=== PATIENT | male | born 1945 | race Caucasian/White ===

== ENCOUNTER 2020-12-06 10:19 | Outpatient (REF) | payer MEDICARE, SELFPAY ==
--- NOTE | ~2020-12-06 | XR_ITS ---
EXAMINATION: XR ELBOW, LEFT CLINICAL INFORMATION: Pain COMPARISON: None TECHNIQUE: AP, lateral, and oblique views of the left elbow. FINDINGS: Bone alignment is normal. No fracture or dislocation is seen. The joint spaces are normal. There is no joint effusion. There is soft tissue calcification or ossification of the triceps tendon insertion to the olecranon. There is overlying soft tissue swelling. XR/XR elbow LT min 3V IMPRESSION: Soft tissue calcification or ossification of the triceps tendon insertion to the olecranon and overlying soft tissue swelling.
== END 2020-12-06 10:20 | disposition home or self-care (01) ==
LOC: HO.HOSX 10:19
PROVIDERS: Visit Provider Orthopaedic Surgery
DX: M25.522 Pain in left elbow (principal); M70.22 Olecranon bursitis, left elbow
CPT/HCPCS: 73080; 99202

== ENCOUNTER 2021-02-20 07:58 | Outpatient (REF) | payer MEDICARE, SELFPAY ==
--- NOTE | ~2021-02-20 | XR_ITS ---
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 No fracture or dislocation is seen. There is a small joint effusion. Standing AP view of the left knee is unremarkable. XR/XR knee standing BI IMPRESSION: Satisfactory appearance of right knee replacement.
--- NOTE | ~2021-02-20 | XR_ITS ---
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 No fracture or dislocation is seen. There is a small joint effusion. Standing AP view of the left knee is unremarkable. XR/XR knee RT 2V IMPRESSION: Satisfactory appearance of right knee replacement.
== END 2021-02-20 07:59 | disposition home or self-care (01) ==
LOC: HO.HOSX 07:58
PROVIDERS: Visit Provider Orthopaedic Surgery
DX: M25.561 Pain in right knee (principal); M25.562 Pain in left knee; Z96.651 Presence of right artificial knee joint
CPT/HCPCS: 73560; 73565; 99212

== ENCOUNTER 2025-04-08 08:14 | Outpatient (REF) | payer MEDICARE, SELFPAY ==
--- NOTE | ~2025-04-08 | XR_ITS ---
EXAMINATION: XR SHOULDER 2 OR MORE VIEWS RIGHT HISTORY: M25.511 - Pain in right shoulder COMPARISON: There are no prior studies available for comparison. FINDINGS: Three views of the right shoulder are submitted. Osseous mineralization is normal. There is no fracture or dislocation. The glenohumeral and acromioclavicular joint spaces are preserved. The soft tissues are unremarkable. XR/XR shoulder RT min 2V IMPRESSION: Unremarkable examination of the right shoulder. Electronically signed by: Aubrey Marina MD 04/08/2025 08:35 AM EDT
--- OUTSIDE RECORDS SUMMARY | 2025-04-08 08:31 | XMS_ITS | Patient Health Record ---
Author Organization Katie Gonzales MD Address [address] [place] [id number] Care Team Providers Care Shactor Helper Name Role Phone Katie Gonzales Primary Care Provider Allergies Allergen (clinical drug ingredient) Drug/Non Drug Allergy documented on EMR Reaction Allergy Type Onset Date Status lisinopril Lisinopril Cough Drug Allergy Activ e semaglutide Ozempic Malaise Drug Allergy 09/23/2023 Acti ve Results Component Value Reference Range Notes HCV Antibody-[id number] Reviewed date:12/29/2024 06:12:28 PM Interpretation: Performing Lab:[facility], [address] [place] [address], Phone - [phone], Director - [place] Notes/Report: Test(s) 573938-Yhpebkroajvbz Acid, Serum was developed and its performance characteristics determined by [facility]. It has not been cleared or approved by the Food and Drug Administration. Hep C Virus Ab Non Reactive Non Reactive HCV antibody alone does not differentiate between previously resolved infection and active infection. Equivocal and Reactive HCV antibody results should be followed up with an HCV RNA test to support the diagnosis of active HCV infection. Methylmalonic Acid, Serum-70 6961 Reviewed date:12/29/2024 06:12:28 PM Interpretation: Performing Lab:[facility], [address] [facility], [place], Phone - [phone], Director - [place] Notes/Report: Test(s) 690815-Czbabwhxpwdso Acid, Serum was developed and its performance characteristics determined by [facility]. It has not been cleared or approved by the Food and Drug Administration. Methylmalonic Acid, Serum 327 0-378 nmol/L LP+Non-HDL Cholesterol-96134 5 Reviewed date:12/29/2024 06:12:28 PM Interpretation: Performing Lab:[facility], [address] [facility], Phone - [phone], Director - [facility] Notes/Report: Test(s) 633550-Fgldeuanvdmkv Acid, Serum was developed and its performance characteristics determined by [facility]. It has not been cleared or approved by the Food and Drug Administration. Cholesterol, Total 117 100-199 mg/dL Triglycerides 73 0-149 mg/dL HDL Cholesterol 50 >39 mg/dL VLDL Cholesterol [place] 15 5-40 mg/dL LDL Chol Calc (NIH) 52 0-99 mg/dL Non-HDL Cholesterol 67 0-129 mg/dL Comp. Metabolic Panel (14)-3 45417 Reviewed date:12/29/2024 06:12:28 PM Interpretation: Performing Lab:[facility] [place], [address] [facility], Phone - [phone], Director - [facility] Notes/Report: Test(s) 082303-Bctqeuxmxvqll Acid, Serum was developed and its performance characteristics determined by [facility] [employer]. It has not been cleared or approved by the Food and Drug Administration. Glucose 107 70-99 mg/dL BUN 18 8-27 mg/dL Creatinine 0.90 0.76-1.27 mg/dL eGFR 87 >59 mL/min/1.73 BUN/Creatinine Ratio 20 10-24 Sodium 142 134-144 mmol/L Potassium 4.9 3.5-5.2 mmol/L Chloride 102 96-106 mmol/L Carbon Dioxide, Total 17 20-29 mmol/L Calcium 9.3 8.6-10.2 mg/dL Protein, Total 6.6 6.0-8.5 g/dL Albumin 4.3 3.8-4.8 g/dL Globulin, Total 2.3 1.5-4.5 g/dL Bilirubin, Total 0.3 0.0-1.2 mg/dL Alkaline Phosphatase 134 44-121 IU/L AST (SGOT) 24 0-40 IU/L ALT (SGPT) 16 0-44 IU/L Albumin/Creatinine Ratio,Uri ne-016321 Reviewed date:12/29/2024 06:12:28 PM Interpretation: Performing Lab:[facility] [place], [address] [facility], Phone - [phone], Director - [facility] Notes/Report: Test(s) 127224-Vugkgfdbndewg Acid, Serum was developed and its performance characteristics determined by [facility]. It has not been cleared or approved by the Food and Drug Administration. Creatinine, Urine 28.8 Not Estab. mg/dL Albumin, Urine <3.0 Not Estab. ug/mL Alb/Creat Ratio <10 0-29 mg/g creat Normal: 0 - 29 Moderately increased: 30 - 300 Severely increased: >300 Vitamin D, 62-Dbvhvgo-192616 Reviewed date:12/29/2024 06:12:27 PM Interpretation: Performing Lab:[facility] [place], [address] [place] [address], Phone - [phone], [facility] - [facility] Notes/Report: Test(s) 043877-Kczieciyxjcpg Acid, Serum was developed and its performance characteristics determined by [facility]. It has not been cleared or approved by the Food and Drug Administration. Vitamin D, 25-Hydroxy 66.4 30.0-100.0 ng/mL Vitamin D deficiency has been defined by the [place] [employer] and an Endocrine Society practice guideline as a level of serum 25-OH vitamin D less than 20 ng/mL (1,2). The Endocrine Society went on to further define vitamin D insufficiency as a level between 21 and 29 ng/mL (2). 1. IOM ([place] of [employer]). 2010. Dietary reference intakes for calcium and D. [place]: The National Academies Press. 2. Antonieta MF, Kwame NC, Libertad LUNA, et al. Evaluation, treatment, and prevention of vitamin D deficiency: an Endocrine Society clinical practice guideline. JCEM. 2010; 96(7):1911-30. Prostate-Specific Ag-218631 Reviewed date:12/29/2024 06:12:27 PM Interpretation: Performing Lab:[facility] [place], [address] [facility], [place], Phone - [phone], Director - [facility] Notes/Report: Test(s) 276222-Sxabdigcgxvol Acid, Serum was developed and its performance characteristics determined by [facility]. It has not been cleared or approved by the Food and Drug Administration. Prostate Specific Ag 5.1 0.0-4.0 ng/mL Cuco ECLIA methodology. . According to the [place] [employer], Serum PSA should decrease and remain at undetectable levels after radical prostatectomy. The AUA defines biochemical recurrence as an initial PSA value 0.2 ng/mL or greater followed by a subsequent confirmatory PSA value 0.2 ng/mL or greater. Values obtained with different assay methods or kits cannot be used interchangeably. Results cannot be interpreted as absolute evidence of the presence or absence of malignant disease. Reticulocyte Count-[id number] Reviewed date:12/29/2024 06:12:27 PM Interpretation: Performing Lab:[facility] [place], [address] [place] [address], Phone - [phone], Director - [facility] Notes/Report: Test(s) 218611-Pihutpzgjgydu Acid, Serum was developed and its performance characteristics determined by [facility]. It has not been cleared or approved by the Food and Drug Administration. Reticulocyte Count 1.5 0.6-2.6 % CBC With Differential/Platel et-[id number] Reviewed date:12/29/2024 06:12:27 PM Interpretation: Performing Lab:[facility] [place], [address] [place] [address], Phone - [phone], Director - [facility] Notes/Report: Test(s) 872518-Dbhjegswhxuam Acid, Serum was developed and its performance characteristics determined by [facility]. It has not been cleared or approved by the Food and Drug Administration. WBC 5.3 3.4-10.8 x10E3/uL RBC 4.49 4.14-5.80 x10E6/uL Hemoglobin 14.8 13.0-17.7 g/dL Hematocrit 44.0 37.5-51.0 % MCV 98 79-97 fL MCH 33.0 26.6-33.0 pg MCHC 33.6 31.5-35.7 g/dL RDW 13.4 11.6-15.4 % Platelets 262 150-450 x10E3/uL Neutrophils 69 Not Estab. % Lymphs 20 Not Estab. % Monocytes 8 Not Estab. % Eos 2 Not Estab. % Basos 1 Not Estab. % Neutrophils (Absolute) 3.7 1.4-7.0 x10E3/uL Lymphs (Absolute) 1.0 0.7-3.1 x10E3/uL Monocytes(Absolute) 0.4 0.1-0.9 x10E3/uL Eos (Absolute) 0.1 0.0-0.4 x10E3/uL Baso (Absolute) 0.1 0.0-0.2 x10E3/uL Immature Granulocytes 0 Not Estab. % Immature Grans (Abs) 0.0 0.0-0.1 x10E3/uL TSH-[id number] Reviewed date:12/29/2024 06:12:27 PM Interpretation: Performing Lab:[facility] [place], [address] [place] [address], Phone - [phone], Director - [facility] Notes/Report: Test(s) 815932-Sjrbyknquxqch Acid, Serum was developed and its performance characteristics determined by [facility]. It has not been cleared or approved by the Food and Drug Administration. TSH 1.180 0.450-4.500 uIU/mL Urinalysis, Complete-124041 Reviewed date:12/29/2024 06:12:27 PM Interpretation: Performing Lab:[facility] [place], [address] [place] [address], Phone - [phone], Director - [facility] Notes/Report: Test(s) 952764-Vhdyilhvyboez Acid, Serum was developed and its performance characteristics determined by [facility]. It has not been cleared or approved by the Food and Drug Administration. Test(s) 763684-Ieaukrxccdkfx Acid, Serum was developed and its performance characteristics determined by [facility]. It has not been cleared or approved by the Food and Drug Administration. Specific [place] 1.018 1.005-1.030 pH 6.0 5.0-7.5 Urine-Color Yellow Yellow Appearance Clear Clear WBC Esterase Negative Negative Protein Negative Negative/Trace Glucose 3+ Negative Ketones Negative Negative Occult Blood Negative Negative Bilirubin Negative Negative Urobilinogen,Semi-Qn 0.2 0.2-1.0 mg/dL Nitrite, Urine Negative Negative Microscopic Examination Micr oscopic follows if indicated. Microscopic Examination See below: Micr oscopic was indicated and was performed. WBC None seen 0 - 5 /hpf RBC None seen 0 - 2 /hpf Epithelial Cells (non renal) None seen 0 - 10 /hpf Casts None seen None seen /lpf Bacteria None seen None seen/Few Thyroxine (T4) Free, Direct- [id number] Reviewed date:12/29/2024 06:12:27 PM Interpretation: Performing Lab:[facility], Phone - [phone], Director [facility] Notes/Report: Test(s) 613257-Xmshojgeimizf Acid, Serum was developed and its performance characteristics determined by [facility]. It has not been cleared or approved by the Food and Drug Administration. T4,Free(Direct) 1.45 0.82-1.77 ng/dL Vitamin [id number] Reviewed date:12/29/2024 06:12:27 PM Interpretation: Performing Lab:[facility] [place], [address] [place] [address], Phone - [phone], [facility] Notes/Report: Test(s) 177315-Ssctttovfqrgc Acid, Serum was developed and its performance characteristics determined by [facility]. It has not been cleared or approved by the Food and Drug Administration. Vitamin B12 720 718-7157 pg/mL Hemoglobin A1C Reviewed date:12/09/2024 04:31:43 PM Interpretation: Performing Lab: Notes/Report: [facility] [place] [facility] [place]), Katie Gonzales MD PC Lot: [id number] Exercise Stress Nuclear Test (Not yet reviewed by provider) Interpretation: Performing Lab: Notes/Report: Hemoglobin A1C Reviewed date:10/11/2024 06:05:53 PM Interpretation: Performing Lab: Notes/Report: [facility] [place] 2 ([facility] [place] 2), Katie Gonzales MD PC Lot: [id number] Vitamin [id number] Reviewed date:10/11/2024 06:05:52 PM Interpretation: Performing Lab:[facility] [place], Phone - [phone], [facility] Notes/Report: Vitamin B12 >2000 232-1245 pg/mL Thyroxine (T4) Free, Direct- [id number] Reviewed date:10/11/2024 06:05:52 PM Interpretation: Performing [facility] [address] [place] [address], Phone - [phone], [facility] Notes/Report: T4,Free(Direct) 1.30 0.82-1.77 ng/dL Urinalysis, Complete-[id number] Reviewed date:10/11/2024 06:05:52 PM Interpretation: Performing Lab:[facility] [place], [address] [place] [address], Phone - [phone], Director - [facility] Notes/Report: Specific [place] 1.028 1.005-1.030 pH 5.5 5.0-7.5 Urine-Color Yellow Yellow Appearance Clear Clear WBC Esterase Negative Negative Protein Trace Negative/Trace Glucose 3+ Negative Ketones Negative Negative Occult Blood Negative Negative Bilirubin Negative Negative Urobilinogen,Semi-Qn 0.2 0.2-1.0 mg/dL Nitrite, Urine Negative Negative Microscopic Examination Micr oscopic follows if indicated. Microscopic Examination See below: Micr oscopic was indicated and was performed. WBC None seen 0 - 5 /hpf RBC None seen 0 - 2 /hpf Epithelial Cells (non renal) None seen 0 - 10 /hpf Casts None seen None seen /lpf Bacteria None seen None seen/Few TSH-[id number] Reviewed date:10/11/2024 06:05:52 PM Interpretation: Performing Lab:[facility], [address] [place] [address], Phone - [phone], Director - dry Notes/Report: TSH 2.060 0.450-4.500 uIU/mL CBC With Differential/Platel et-[id number] Reviewed date:10/11/2024 06:05:52 PM Interpretation: Performing Lab:[facility], [address] [place] [address], Phone - [phone], Director - [facility] Notes/Report: WBC 7.0 3.4-10.8 x10E3/uL RBC 4.56 4.14-5.80 x10E6/uL Hemoglobin 15.6 13.0-17.7 g/dL Hematocrit 45.4 37.5-51.0 % MCV 100 79-97 fL MCH 34.2 26.6-33.0 pg MCHC 34.4 31.5-35.7 g/dL RDW 12.3 11.6-15.4 % Platelets 271 150-450 x10E3/uL Neutrophils 76 Not Estab. % Lymphs 15 Not Estab. % Monocytes 6 Not Estab. % Eos 2 Not Estab. % Basos 1 Not Estab. % Neutrophils (Absolute) 5.3 1.4-7.0 x10E3/uL Lymphs (Absolute) 1.0 0.7-3.1 x10E3/uL Monocytes(Absolute) 0.4 0.1-0.9 x10E3/uL Eos (Absolute) 0.2 0.0-0.4 x10E3/uL Baso (Absolute) 0.0 0.0-0.2 x10E3/uL Immature Granulocytes 0 Not Estab. % Immature Grans (Abs) 0.0 0.0-0.1 x10E3/uL Reticulocyte Count-[id number] Reviewed date:10/11/2024 06:05:52 PM Interpretation: Performing Lab:[facility] [place], [address] [place] [address], Phone - [phone], Director - [place] Notes/Report: Reticulocyte Count 0.8 0.6-2.6 % Vitamin D, 74-Gwhczie-[id number] Reviewed date:10/11/2024 06:05:52 PM Interpretation: Performing Lab:[facility] [place], [address] [place] [address], Phone - [phone], Director - [place] Notes/Report: Vitamin D, 25-Hydroxy 87.0 30.0-100.0 ng/mL Vitamin D deficiency has been defined by the [place] [employer] and an Endocrine Society practice guideline as a level of serum 25-OH vitamin D less than 20 ng/mL (1,2). The Endocrine Society went on to further define vitamin D insufficiency as a level between 21 and 29 ng/mL (2). 1. IOM ([place] [employer]). 2010. Dietary reference intakes for calcium and D. [place]: The National Academies Press. 2. Antonieta MF, Kwame [place], Libertad LUNA, et al. Evaluation, treatment, and prevention of vitamin D deficiency: an Endocrine Society clinical practice guideline. JCEM. 2010; 96(7):1911-30. Albumin/Creatinine Ratio,Uri ne-231214 Reviewed date:10/11/2024 06:05:53 PM Interpretation: Performing Lab:[facility] [place], [address] [place] [address], Phone - [phone], Director - [place] Notes/Report: Creatinine, Urine 77.6 Not Estab. mg/dL Albumin, Urine <3.0 Not Estab. ug/mL Alb/Creat Ratio <4 0-29 mg/g creat Normal: 0 - 29 Moderately increased: 30 - 300 Severely increased: >300 Comp. Metabolic Panel (14)-3 98611 Reviewed date:10/11/2024 06:05:53 PM Interpretation: Performing Lab:[facility] [place], [address] [place] [address], Phone - [phone], Director - [place] Notes/Report: Glucose 99 70-99 mg/dL BUN 15 8-27 mg/dL Creatinine 0.90 0.76-1.27 mg/dL eGFR 87 >59 mL/min/1.73 BUN/Creatinine Ratio 17 10-24 Sodium 140 134-144 mmol/L Potassium 4.8 3.5-5.2 mmol/L Chloride 100 96-106 mmol/L Carbon Dioxide, Total 25 20-29 mmol/L Calcium 9.6 8.6-10.2 mg/dL Protein, Total 6.8 6.0-8.5 g/dL Albumin 4.3 3.8-4.8 g/dL Globulin, Total 2.5 1.5-4.5 g/dL Bilirubin, Total 1.1 0.0-1.2 mg/dL Alkaline Phosphatase 121 44-121 IU/L AST (SGOT) 19 0-40 IU/L ALT (SGPT) 14 0-44 IU/L LP+Non-HDL Cholesterol-71998 5 Reviewed date:10/11/2024 06:05:53 PM Interpretation: Performing Lab:[facility], [address] [place] [address], Phone - [phone], Director - [place] Notes/Report: Cholesterol, Total 75 100-199 mg/dL Triglycerides 95 0-149 mg/dL HDL Cholesterol 31 >39 mg/dL VLDL Cholesterol Colton 19 5-40 mg/dL LDL Chol Calc (NIH) 25 0-99 mg/dL Non-HDL Cholesterol 44 0-129 mg/dL Hemoglobin A1C Reviewed date:06/09/2024 05:59:48 PM Interpretation: Performing Lab: Notes/Report: [facility] [place]), Katie Gonzales MD PC Lot: [id number] Thyroxine (T4) Free, Direct- [id number] Reviewed date:06/13/2024 06:35:25 AM Interpretation: Performing Lab:[facility] [place], [address] [place] [address], Phone - [phone], Director - [place] Notes/Report: T4,Free(Direct) 1.52 0.82-1.77 ng/dL TSH-[id number] Reviewed date:06/13/2024 06:35:25 AM Interpretation: Performing Lab:[facility] [place], [address] [facility], Phone - [phone], Director - [facility] Notes/Report: TSH 1.580 0.450-4.500 uIU/mL Comp. Metabolic Panel (14)-3 90105 Reviewed date:06/13/2024 06:35:26 AM Interpretation: Performing Lab:[facility] [place], [address] [facility], Phone - [phone], Director - [facility] Notes/Report: Glucose 86 70-99 mg/dL BUN 13 8-27 mg/dL Creatinine 0.87 0.76-1.27 mg/dL eGFR 88 >59 mL/min/1.73 BUN/Creatinine Ratio 15 10-24 Sodium 143 134-144 mmol/L Potassium 5.3 3.5-5.2 mmol/L Chloride 101 96-106 mmol/L Carbon Dioxide, Total 24 20-29 mmol/L Calcium 9.4 8.6-10.2 mg/dL Protein, Total 6.4 6.0-8.5 g/dL Albumin 4.1 3.8-4.8 g/dL Globulin, Total 2.3 1.5-4.5 g/dL Bilirubin, Total 0.6 0.0-1.2 mg/dL Alkaline Phosphatase 122 44-121 IU/L AST (SGOT) 18 0-40 IU/L ALT (SGPT) 15 0-44 IU/L Reason For Referral No Information Medications Medication SIG (Take, Route, Frequency, Duration) Notes Start Date End Date Status Aspirin 81 MG 1 tablet Orally Once a day Active Triamcinolone Acetonide 0.5 % 1 application Externally Twice a day; Duration: 14 days 03/02/2020 Active Farxiga 10 MG 1 tablet Orally Once a day; Duration: 90 days 09/29/2024 09/29/2025 Active Levothyroxine Sodium 150 MCG 1 tablet in the morning on an empty stomach Orally Once a day; Duration: 84 days Active Olmesartan Medoxomil 5 MG 1 Tablet Orall y Once a Day; Duration: 90 days Active Clotrimazole-Betamethasone 1-0.05 % 1 application Externally Twice a day 11/29/2021 Active Atorvastatin Calcium 20 MG TAKE 1 TABLET BY MOUTH EVERY DAY; Duration: 90 Active Rybelsus 3 MG 1 Tablet Orally Once a Day; Duration: 90 days Active Ativan 1 MG 1-2 tablet Orally Once a day; Duration: 1 days As needed 12/13/2024 Active Immunizations Vaccine Route Administration Date Status Comme nts Td (adult) preservative free IM Intramuscular 11/29/2021 Administered Pneumococcal polysaccharide PPV23 Unknown 05/28/2012 Administered Pneumococcal polysaccharide PCV 13 IM Intramuscular 04/23/2016 Administered Influenza-Afluria (IIV4) Unknown 07/25/2016 Administere d Influenza, high dose seasonal Unknown 04/27/2018 Administered Influenza, high dose seasonal Unknown 05/20/2019 Administered Influenza (Fluad) Unknown 05/11/2020 Administered Influenza (Fluad) Unknown 06/11/2023 Administered Hep A, adult Unknown 09/16/2019 Administered UEYZD-17-Nijmfi Vaccine Unknown 09/04/2020 Administered PCULN-70-Atdlfc Vaccine Unknown 09/25/2020 Administered WUZQY-62-Corucvw Vaccine Unknown 07/17/2021 Administere d *PREVNAR 20 IM Intramuscular 12/08/2023 Administered RSV Unknown 05/20/2023 Administered COVID-19 Pfizer BiValent Booster Unknown 07/16/2022 Administered *Qqkhmqtle-Zngbnnw-Bbtw Dose-65+ IM Intramuscular 06/09/2024 Administered *Influenza, High Dose Seasonal, Quadrivatent Unknown 04/30/2021 Administered *Influenza, High Dose Seasonal, Quadrivatent Unknown 05/30/2022 Administered Social History Tobacco Use: Social History Observation Description Date Details (start date - stop date) Former Smoker NA - NA AUDIT-C (Standard) Question Answer Notes Did you have a drink contain ing alcohol in the past year? Yes How often did you have a dri nk containing alcohol in the past year? Daily or almost daily (4 points) How many drinks did you have on a typical day when you were drinking in the past year? 1 or 2 drinks (0 point) How often did you have six o r more drinks on one occasion in the past year? Never (0 point) Points 4 Interpretation Positive Tobacco Control (Standard) Question Answer Notes Tobacco use: Former smoker How long has it been since you last smoked? Grea ter than 10 years Problems Problem Type SNOMED Code ICD Code Onset Dates Problem Status W/U Status Risk Notes Problem Pernicious anemia (78737008) Vitamin B12 deficiency anemia due to intrinsic factor deficiency (D51.0) Active confirmed Problem Hypothyroidism (60967929) Hypothyroidism, unspecified (E03.9) Active confirmed Problem Polyneuropathy due to type 2 diabetes mellitus (231571477) Type 2 diabetes mellitus with diabetic polyneuropathy (E11.42) Active confirmed Problem Testicular hypofunction (467171004) Testicular hypofunction (E29.1) Active confirmed Problem Vitamin D deficiency (99249082) Vitamin D deficiency, unspecified (E55.9) Active confirmed Problem Mixed hyperlipidemia (259941909) Mixed hyperlipidemia (E78.2) Active confirmed Problem Sensorineural hearing loss of bilateral ears (disorder) (561876162) Sensorineural hearing loss, bilateral (H90.3) Active confirmed Problem Chronic kidney disease due to hypertension (553773757118127) Hypertensive chronic kidney disease with stage 1 through stage 4 chronic kidney disease, or unspecified chronic kidney disease (I12.9) Active confirmed Problem 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) (99681336088631326) 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 Problem Allergic rhinitis caused by pollen (disorder) (70684081) Allergic rhinitis due to pollen (J30.1) Active confirmed Problem Chronic kidney disease stage 2 (543453514) Chronic kidney disease, stage 2 (mild) (N18.2) Active confirmed Problem Family history of malignant neoplasm of prostate (981079599) Family history of malignant neoplasm of prostate (Z80.42) Active confirmed Problem Body mass index 30.00 to 34.99 (543735870081310) Body mass index [BMI] 32.0-32.9, adult (Z68.32) Active confirmed Problem Body mass index 30.00 to 34.99 (377124239930252) Body mass index [BMI] 33.0-33.9, adult (Z68.33) Inactive confirmed Problem Candidiasis of skin and nail (B37.2) Problem resolved confirmed Vital Signs Heart Rate 62 /min 12/09/2024 Temperature 96.4 degrees Fahrenheit 12/09/2024 Blood pressure diastolic 72 mm Hg 12/09/2024 Oximetry 98 % 12/09/2024 Height 71 in 12/09/2024 Blood pressure systolic 126 mm Hg 12/09/2024 Weight 199 lbs 12/09/2024 BMI 27.75 kg/m2 12/09/2024 Encounters Encounter Location Date Provider Diagnosis Katie Gonzales MD [address] [id number] 08/20/2024 Katie Gonzales MD [address] [id number] 09/30/2024 Katie Gonzales Type 2 diabetes mellitus with diabetic polyneuropathy E11.42 Katie Gonzales MD [address] [id number] 10/04/2024 Katie Gonzales Type 2 diabetes mellitus with diabetic polyneuropathy E11.42 Katie Gonzales MD [address] [id number] 12/27/2024 Katie Gonzales Atherosclerotic hear t disease of nondalton coronary artery with other forms of angina pectoris I25.118 Katie Gonzales MD [address] [id number] 12/29/2024 Katie Gonzales MD [address] [id number] 06/27/2024 Katie Gonzales MD [address] [id number] 12/12/2024 Katie Gonzales Atherosclerotic hear t disease of nondalton coronary artery with other forms of angina pectoris I25.118 Katie Gonzales MD [address] [id number] 12/13/2024 Katie Gonzales MD [address] [id number] 12/14/2024 Katie Gonzales MD [address] [id number] 06/09/2024 Katie Gonzales Type 2 diabetes mellitus with diabetic polyneuropathy E11.42 ; Hypertensive chronic kidney disease with stage 1 through stage 4 chronic kidney disease, or unspecified chronic kidney disease I12.9 ; Chronic kidney disease, stage 2 (mild) N18.2 ; Hypothyroidism, unspecified E03.9 ; Mixed hyperlipidemia E78.2 ; Vitamin B12 deficiency anemia due to intrinsic factor deficiency D51.0 ; Vitamin D deficiency, unspecified E55.9 and Encounter for immunization Z23 Katie Gonzales MD [address] [id number] 09/29/2024 Katie Gonzales Type 2 diabetes mellitus with diabetic polyneuropathy E11.42 ; Hypertensive chronic kidney disease with stage 1 through stage 4 chronic kidney disease, or unspecified chronic kidney disease I12.9 ; Chronic kidney disease, stage 2 (mild) N18.2 ; Hypothyroidism, unspecified E03.9 ; Mixed hyperlipidemia E78.2 ; Vitamin B12 deficiency anemia due to intrinsic factor deficiency D51.0 and Vitamin D deficiency, unspecified E55.9 Katie Gonzlaes MD [address] [id number] 12/09/2024 Katie Gonzales Encounter for genera l adult medical examination without abnormal findings Z00.00 ; Hypertensive chronic kidney disease with stage 1 through stage 4 chronic kidney disease, or unspecified chronic kidney disease I12.9 ; Type 2 diabetes mellitus with diabetic polyneuropathy E11.42 ; Chronic kidney disease, stage 2 (mild) N18.2 ; Hypothyroidism, unspecified E03.9 ; Mixed hyperlipidemia E78.2 ; Vitamin B12 deficiency anemia due to intrinsic factor deficiency D51.0 ; Family history of malignant neoplasm of prostate Z80.42 ; Vitamin D deficiency, unspecified E55.9 ; Encounter for screening for malignant neoplasm of colon Z12.11 ; Encounter for screening for malignant neoplasm of prostate Z12.5 ; Encounter for screening for cardiovascular disorders Z13.6 ; Encounter for immunization Z23 ; Encounter for antibody response examination Z01.84 ; Encounter for screening for other viral diseases Z11.59 ; Sensorineural hearing loss, bilateral H90.3 and 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 This may be an isolated flare. He says his blood pressure at home is better. Recommend he continue using a validated blood pressure cuff with appropriate technique to evaluate control. 12/09/2024 Encounter for general adult medical examination without abnormal findings (ICD-10 - Z00.00) General healthcare up-to-date. Check routine labs. Healthcare proxy already on file. 09/30/2024 Type 2 diabetes mellitus with diabetic polyneuropathy (ICD-10 - E11.42) 09/29/2024 Type 2 diabetes mellitus with diabetic polyneuropathy (ICD-10 - E11.42) Stable with current medical therapy. Continue same. He continues to improve and may not need metformin anymore. Since there is no cardiac benefit to metformin continuing SGLT2 has greater benefit than continuing metformin 09/29/2024 Hypertensive chronic kidney disease with stage 1 through stage 4 chronic kidney disease, or unspecified chronic kidney disease (ICD-10 - I12.9) Stable at present. Continue current medical therapy. He may not require further therapy in the future if he continues to lose weight. 10/04/2024 Type 2 diabetes mellitus with diabetic polyneuropathy (ICD-10 - E11.42) 06/09/2024 Type 2 diabetes mellitus with diabetic polyneuropathy (ICD-10 - E11.42) Stable with current medical therapy. He still has occasional bloating but he is managing okay with current therapy. 06/09/2024 Hypertensive chronic kidney disease with stage 1 through stage 4 chronic kidney disease, or unspecified chronic kidney disease (ICD-10 - I12.9) Stable at present. He has not fully cut down to 5 mg of olmesartan yet. He is alternating a 20 and a 5 and if he continues to lose weight he will probably need further reduction his medical therapy. Can reevaluate in 3 months when he is on 5 mg consistently. 06/09/2024 Chronic kidney disease, stage 2 (mild) (ICD-10 - N18.2) Stable with estimated GFR in the 80s. Continue control of comorbidity of diabetes and hypertension 09/29/2024 Chronic kidney disease, stage 2 (mild) (ICD-10 - N18.2) Stable estimated GFR in the 80s. Continue control of comorbidities 12/09/2024 Type 2 diabetes mellitus with diabetic polyneuropathy (ICD-10 - E11.42) Stable at present. His A1c has increased some. This is probably because that he had regained weight. He was concerned that he was losing too much weight and has stopped making attempts to lose any additional weight. 12/09/2024 Chronic kidney disease, stage 2 (mild) (ICD-10 - N18.2) Stable estimated GFR in the 80s. Continue control comorbidities of hypertension diabetes 09/29/2024 Hypothyroidism, unspecified (ICD-10 - E03.9) Stable on recent labs as reviewed. Recheck status 06/09/2024 Hypothyroidism, unspecified (ICD-10 - E03.9) Recheck status given his weight loss to verify that there is no change in dosing required 06/09/2024 Mixed hyperlipidemia (ICD-10 - E78.2) Controlled with LDL less than 50. Continue current medical therapy 09/29/2024 Mixed hyperlipidemia (ICD-10 - E78.2) Controlled with LDL less than 50. Continue current medical therapy 12/09/2024 Hypothyroidism, unspecified (ICD-10 - E03.9) Stable with current medical therapy and replacement therapy. Recheck status 09/29/2024 Vitamin B12 deficiency anemia due to intrinsic factor deficiency (ICD-10 - D51.0) Stable with B12 replacement. Continue same. If his MCV remains elevated then there may be a possibility of myelodysplasia as well. This may need further evaluation in the future. However at the present time he does not have an impaired reticulocyte count therefore it is less likely to for him to have myelodysplasia 12/09/2024 Mixed hyperlipidemia (ICD-10 - E78.2) Stable with LDL controlled. It is less than 50. However his calculated cardiovascular risk is significantly elevated at 22.71%. In view of this significantly elevated risk continue to control comorbidities and he would benefit from evaluation for anatomical disease 06/09/2024 Vitamin B12 deficiency anemia due to intrinsic factor deficiency (ICD-10 - D51.0) Stable with B12 replacement. Can continue same. 06/09/2024 Vitamin D deficiency, unspecified (ICD-10 - E55.9) Stable on prior labs reviewed. Continue vitamin D supplementation for goal level of 30+ 09/29/2024 Vitamin D deficiency, unspecified (ICD-10 - E55.9) Stable on prior labs reviewed. Continue vitamin D supplementation for goal level of 30+ 12/09/2024 Vitamin B12 deficiency anemia due to intrinsic factor deficiency (ICD-10 - D51.0) Stable with B12 replacement. His MCV is improving. Continue current replacement therapy 06/09/2024 Encounter for immunization (ICD-10 - Z23) 12/09/2024 Family history of malignant neoplasm of prostate (ICD-10 - Z80.42) Can check PSA given family history 12/09/2024 Vitamin D deficiency, unspecified (ICD-10 - E55.9) Stable on prior labs as reviewed. Recheck status and would consider increasing vitamin D supplementation to maintain goal level of 30+ 12/09/2024 Encounter for screening for malignant neoplasm of colon (ICD-10 - Z12.11) Up-to-date on colon cancer screening 12/09/2024 Encounter for screening for malignant neoplasm of prostate (ICD-10 - Z12.5) Can check PSA has prostate cancer screening realizing the limitation of this test as a screening test 12/09/2024 Encounter for screening for cardiovascular disorders (ICD-10 - Z13.6) Blood pressure is stable. Can check for comorbidity of hyperlipidemia and hyperglycemia to further assess risk. 12/09/2024 Encounter for immunization (ICD-10 - Z23) Vaccines up to date 12/09/2024 Encounter for antibody response examination (ICD-10 - Z01.84) He would be considered immune to rubeola by virtue of his age 0512/09/2024 Encounter for screening for other viral diseases (ICD-10 - Z11.59) Can screen for hepatitis C as per general recommendation 12/09/2024 Sensorineural hearing loss, bilateral (ICD-10 - H90.3) He has borderline in terms of hearing loss. 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 Also labs were reviewed with patient. 09/29/2024 Other This note was created with voice dictation recognition software and may contain errors of grammar and syntax. Also labs were reviewed with patient. 12/09/2024 Other This note was created with voice dictation recognition software and may contain errors of grammar and syntax. Also labs were reviewed with patient. Plan Of Treatment Pending Test Test Name Order Date Exercise Stress Nuclear Test 12/27/2024 25OH VITAMIN D 10/05/2021 25OH VITAMIN D 09/23/2023 25OH VITAMIN D 02/26/2022 25OH VITAMIN D 11/29/2021 25OH VITAMIN D 06/28/2021 25OH VITAMIN D 03/26/2021 COMPLETE CBC WITH DIFF 06/28/2021 COMPLETE CBC WITH DIFF 11/29/2021 COMPLETE CBC WITH DIFF 02/26/2022 COMPLETE CBC WITH DIFF 09/23/2023 COMPLETE CBC WITH DIFF 10/05/2021 COMPLETE CBC WITH DIFF 03/26/2021 COMPLETE URINALYSIS 10/05/2021 COMPLETE URINALYSIS 09/23/2023 COMPLETE URINALYSIS 11/29/2021 COMPLETE URINALYSIS 03/26/2021 COMPLETE URINALYSIS 06/28/2021 COMPREHENSIVE METABOLIC PANEL 06/28/2021 COMPREHENSIVE METABOLIC PANEL 11/29/2021 COMPREHENSIVE METABOLIC PANEL 02/26/2022 COMPREHENSIVE METABOLIC PANEL 09/23/2023 COMPREHENSIVE METABOLIC PANEL 10/05/2021 COMPREHENSIVE METABOLIC PANEL 03/26/2021 FERRITIN 07/02/2022 FERRITIN 02/26/2022 FOLIC ACID 02/26/2022 FOLIC ACID 07/02/2022 FREE T4 09/23/2023 FREE T4 02/26/2022 FREE T4 10/05/2021 FREE T4 11/29/2021 FREE T4 06/28/2021 FREE T4 03/26/2021 FREE TESTOSTERONE 11/29/2021 FREE TESTOSTERONE 10/05/2021 HEMOGLOBIN A1C 10/05/2021 IMMUNOFIXATION SERUM 07/02/2022 IMMUNOFIXATION SERUM 02/26/2022 IRON & TIBC 02/26/2022 IRON & TIBC 07/02/2022 LIPID PANEL W REFLEX TO DLDL 09/23/2023 LIPID PANEL W REFLEX TO DLDL 10/05/2021 LIPID PANEL W REFLEX TO DLDL 02/26/2022 LIPID PANEL W REFLEX TO DLDL 11/29/2021 LIPID PANEL W REFLEX TO DLDL 06/28/2021 LIPID PANEL W REFLEX TO DLDL 03/26/2021 METHYLMALONIC ACID, 09/23/2023 METHYLMALONIC ACID, 07/02/2022 PSA 10/05/2021 PSA 11/29/2021 RETICULOCYTE COUNT 02/26/2022 RETICULOCYTE COUNT 07/02/2022 RETICULOCYTE COUNT 09/23/2023 TESTOSTERONE 10/05/2021 TESTOSTERONE 11/29/2021 TSH 11/29/2021 TSH 06/28/2021 TSH 10/05/2021 TSH 02/26/2022 TSH 09/23/2023 TSH 03/26/2021 URINARY MICROALBUMIN 09/23/2023 URINARY MICROALBUMIN 10/05/2021 URINARY MICROALBUMIN 02/26/2022 URINARY MICROALBUMIN 06/28/2021 URINARY MICROALBUMIN 03/26/2021 URINARY MICROALBUMIN 11/29/2021 VITAMIN B12 02/26/2022 VITAMIN B12 09/23/2023 VITAMIN B12 07/02/2022 COLOGUARD 08/07/2018 Future Test Test Name Order Date 25OH VITAMIN D 04/23/2020 COMPLETE CBC WITH DIFF 04/23/2020 COMPLETE URINALYSIS 04/23/2020 COMPREHENSIVE METABOLIC PANEL 04/23/2020 HEMOGLOBIN A1C 04/23/2020 LIPID PANEL W REFLEX TO DLDL 04/23/2020 URINARY MICROALBUMIN 04/23/2020 Next Appt Details Provider Name:Katie Gonzales , 04/14/2025 09:30:00 AM, [address] [place] [address], [phone], Provider Name:Katie Gonzales , 12/26/2025 09:00:00 AM, [address] [place] [address], [phone], Insurance Providers Payer Name Payer Address Payer Phone Subscriber Number Group Number Insured Name Patient Relationship to Insured Coverage Start Date Coverage End Date [employer] MEDICARE PPO BLUE [address] [place] [address] [phone] [id number] Rahul Henry Self - patient is the insured MEDICARE [address] [place] [phone] [id number] Rahul Henry Self - patient is the insured Medical (General) History Medical History History ICD Code Chondromalacia patellae, 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 Unilateral primary osteoarthritis, right knee M17.11 Derangement of other medial meniscus due to old tear or injury, right knee Type 2 diabetes mellitus with diabetic p olyneuropathy E11.42 Vitamin D deficiency, unspecified E55.9 Family history of malignant neoplasm of prostate Z80.42 Hypothyroidism, unspecified E03.9 Hypertensive chronic kidney disease with stage 1 through stage 4 chronic kidney disease, or unspecified chronic kidney disease I12.9 Chronic kidney disease, stage 2 (mild) N 18.2 Candidiasis of skin and nail (resolved 0 12/02/2022) Surgical History Surgery Date(Month/Year) Left shoulder pain-Arthroscopy 5 right knee arthroscopy 11/2016 knee replacement, RIGHT 02/2018 Excision of neuroma, LT hand 05/2023 tooth removal 09/2024 Hospitalization History Reason Date(Month/Year) knee surgery 02/2018
== END 2025-04-08 08:15 | disposition home or self-care (01) ==
LOC: HO.HOSX 08:14
DX: S46.311A Strain of muscle, fascia and tendon of triceps, right arm, initial encounter (principal); X58.XXXA Exposure to other specified factors, initial encounter; Z96.651 Presence of right artificial knee joint
CPT/HCPCS: 73030

== ENCOUNTER 2025-04-08 08:22 | Outpatient (AMB) | payer BC, SELFPAY ==
--- NOTE | 2025-04-08 08:33 | A.OFFVIS_ITS ---
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 Patient reports pain started about 2 months, primarily affecting the lateral aspect of his right upper arm without associated numbness or tingling. He feels pain worsens when he extends the arm. He is taking Aspirin, Tylenol, and Ibuprofen PRN with relief. Patient is interested on a cortisone injection today as he has tried them for the knees in the past. History of Type 2 Diabetes. Former patient of Dr. Farmer. 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 Patient reports pain started about 2 months, primarily affecting the lateral aspect of his right upp er arm without associated numbness or tingling. Patient denies any pain in the shoulder or elbow joints of the thumbs, reports that pain is primarily in the muscle belly of the triceps and occasionally extends down towards the lateral epicondyle or up in the direction of the shoulder. Patient states that he has been working out with weights more, but stopped once he noticed in his pain. He feels pain worsens when he extends the arm. He is taking Aspirin, Tylenol, and Ibuprofen PRN with relief. Patient is interested on a cortisone injection today as he has tried them for the knees in the past. History of Type 2 Diabetes. Former patient of Dr. Farmer. [facility] Surgical History (Updated 04/08/25 @ 08:39 by YENIFER Gee) History of total right knee replacement Social History (Updated 04/08/25 @ 08:39 by YENIFER Gee) Alcohol intake: current Alcohol intake frequency: 0-2 drinks per day Patient Tobacco Use Status: Former Tobacco user Tobacco use type: Pipe Current occupational status: retired Review of Systems Const All systems reviewed & are unremarkable except as noted in HPI and below Physical Exam Vital Signs: BMI result Body Mass Index 27.6 Extrem Other: Patient's right shoulder normal to inspection No erythema, ecchymosis, edema noted No lacerations, abrasions, open areas No evidence of infection Patient reports no tenderness to palpation of the AC joint, clavicle, posterior shoulder, bicipital groove, proximal triceps tendon, distal triceps tendon, or triceps muscle belly Patient is able to forward flex the shoulders bilaterally to approximately 120 degrees without pain and difficulty Patient is able to externally rotate bilateral shoulders to approximately 80-90 degrees without difficulty 5/5 strength empty can bilaterally 5/5 strength belly press bilaterally 5/5 strength lift-off bilaterally Negative Carter bilaterally Distal sensation intact Capillary refill brisk Results Reviewed Results Reviewed: X-rays obtained in the office today and independently reviewed by me, Dandre Craft PA-C, demonstrate minimal degenerative changes of both the glenohumeral and AC joints of right shoulder, no fracture or acute bony abnormality noted. Assessment & Plan Assessment & Plan (1) History of total right knee replacement (TKR): Code(s): Z96.651 - Presence of right artificial knee joint Category: Surgical (2) Triceps strain: Code(s): S46.319A - Strain of muscle, fascia and tendon of triceps, unspecified arm, initial encounter Category: Medical Plan 1. Triceps strain of right arm Patient is educated about this condition Patient is educated about the typical treatment course At this time, patient is informed that the best place to start in terms of treatment for this issue is a course of physical therapy Patient is initially apprehensive of physical therapy, but does agree to referral Patient is educated that if a few weeks after beginning physical therapy he still experiencing significant pain, he should call our office for reassessment Patient understands this is amenable to this plan Orders: Orders XR shoulder RT min 2V Today M25.511 - Pain in right shoulder PT Evaluation and Treatment Today S46.319A - Strain of muscle, fascia and tendon of triceps, unspecified arm, initial encounter Coding Level of Care Code New Pt Level 3 (06931) Diagnoses History of total right knee replacement (TKR) Z96.651 Triceps strain S46.319A
[2025-04-08 08:35] VITALS: BMI 27.6
== END 2025-04-08 08:52 | disposition home or self-care (01) ==
DX: S46.311A Strain of muscle, fascia and tendon of triceps, right arm, initial encounter (principal); Z96.651 Presence of right artificial knee joint
CPT/HCPCS: 99203

== ENCOUNTER → 2025-04-08 08:24 | Outpatient (BNV) | payer MEDICARE, SELFPAY | PROVIDERS: Visit Provider Radiology Diagnostic Radiology | DX: M25.511 Pain in right shoulder (principal) | CPT/HCPCS: 73030 ==

== ENCOUNTER 2025-05-26 09:00 | Outpatient (RCR) | payer BC, SELFPAY ==
--- NOTE | 2025-05-26 09:40 | MHC.PT.DC ---
[facility] [place] Office [place] Office [place] Office [address] Karol Oneal [address] [phone] F: [phone] F: [phone] F: [phone] F: [phone] Physical Therapy Discharge Report Diagnosis: strain of muscle, fascia, and tendon of triceps Date of Surgery: n/a Date of Evaluation: 05/02/25 Date of Discharge: 05/26/25 Treatments to Date: 7 Cancellations to Date: 0 No Shows to Date: 0 Discharge Status: Achieved Goals Improved Function Independent with HEP Discharge Summary: 05/26/2025: Pain is improved overall and he is happy with his progress. has some discomfort still with abd but overall this is better. At this time max benefits of PT have been provided and skilled PT is no longer indicated. Pt is in agreement with d/c today. Electronically signed by: Lula Rogers, PT, DPT, ATC Please sign and return to therapist. Thank you for your referral.
== END 2025-05-26 09:40 | disposition home or self-care (01) ==
LOC: HO.PTCHIC 09:00
PROVIDERS: PCP Internal Medicine Rheumatology
DX: S46.311D Strain of muscle, fascia and tendon of triceps, right arm, subsequent encounter (principal)
CPT/HCPCS: 97110; 97140; 97161